=== PATIENT | male | born 1995 | race African-American/Black ===

== ENCOUNTER 2022-07-08 19:24 | Emergency (ER) | payer OTHER, SELFPAY ==
[2022-07-08 19:30] VITALS: BP 148/91; PULSE 80; RESP 16; TEMP 36.9; O2SAT 100
--- NOTE | 2022-07-08 19:33 | ED.MALEGU ---
HPI - Male Genitourinary General Stated complaint: sti checkup Time Seen by Provider: 07/08/22 19:38 Source: patient and RN notes reviewed Mode of arrival: ambulatory Limitations: no limitations History of Present Illness HPI Narrative: 26-year-old male presents concern for rash in the head of his penis. He reports that he noticed red bumps on his penis about 3 weeks ago with some slight burning and irritation when his clothes touch did. Reports he has been using hydrocortisone cream. Reports the bumps went away with he still has some skin irregularity in that area. He reports he is in a monogamous relationship currently and uses protection during intercourse. Denies dysuria, frequency, urgency, penile discharge. Reports the area does not itch. Related Data Home Medications Medication Instructions Recorded Confirmed No Home Medications 07/08/22 07/08/22 Allergies Allergy/AdvReac Type Severity Reaction Status Date / Time No Known Allergies Allergy Verified 07/08/22 19:32 Review of Systems Review of Systems: CONSTITUTIONAL: Denies malaise, chills, sweats, or fever. CARDIOVASCULAR: Denies chest pain, palpitations, or edema. RESPIRATORY: Denies cough or dyspnea. GASTROINTESTINAL: Denies abdominal pain, nausea, vomiting, diarrhea GENITOURINARY: Denies dysuria, frequency, urgency, suprapubic pressure. Denies flank pain or hematuria. SKIN: Reports skin irregularity on the head of his penis MUSCULOSKELETAL: Denies back pain or myalgia. All systems reviewed & are unremarkable except as noted in HPI and below PMFSH Comments At time of signature, agree with nursing past medical, surgical, social and family history. There is no relevant family history pertinent to the presenting complaint Exam Narrative: GENERAL: Well-appearing, well-nourished, and in no acute distress. HEAD: Normocephalic. EYES: PERRLA, conjunctivae clear. NECK: Supple. No lymphadenopathy CHEST: Clear to auscultation. No respiratory distress. HEART: Regular rate and rhythm. SKIN: Warm, dry. 1.5 cm area on the head of the penis of slight plaque, nontender, no erythema, no vesicles noted. No penile discharge noted, no scrotal or testicular erythema, edema, tenderness NEURO: Alert and oriented x3. PSYCH: Normal mood and affect Course Course Emergency Course: Patient is aware of diagnosis, understands and agrees to treatment plan. Anticipatory guidance given. Patient agrees to follow-up as directed and is aware of reasons to seek care at the emergency department. Portions of this record may have been created with voice recognition software Level of Care: Express Care Visit Vital Signs Vital signs: Reviewed. MDM - Male Genitourinary MDM Narrative Medical decision making narrative: Contact dermatitis, herpes, other STI, dry skin Critical Care Time Critical Care Time Critical Care Time: No Discharge Plan Discharge Clinical Impression: Rash of penis Patient Disposition: Home, Self-Care Condition: Stable Instructions: General Patient Instructions Additional Instructions: 1) Please follow-up with your primary care doctor if you have any new symptoms or concerns. 2) If you have any worsening of symptoms or any other urgent concerns please go to the ER. 3) Please use Vaseline or Aquaphor on it the problem area. 4) you will receive a phone call with results of your testing today. Continue to use protection during intercourse Prescriptions: No Action No Home Medications Follow-up/Referrals: UNKNOWN,DOCTOR [Primary Care Provider] - Time of Disposition: 19:57
== END 2022-07-08 20:01 | disposition home or self-care (01) ==
PROVIDERS: Emergency Provider Nurse Practitioner
DX: N48.89 Other specified disorders of penis (principal)
CPT/HCPCS: 87255; 99213; G0463

== ENCOUNTER 2023-09-11 21:51 | Emergency (ER) | payer BC, SELFPAY ==
[2023-09-11 21:55] VITALS: BP 139/81; PULSE 77; RESP 15; TEMP 36.8; O2SAT 99
[2023-09-11 22:25] LABS: Appearance Urine Clear (Clear); Bilirubin Urine Negative (Negative); Blood Urine Negative (Negative); Color Urine Yellow (Yellow); Glucose Urine UA Negative (Negative); Ketones Urine Trace mg/dL (Negative); Leukocyte Esterase Ur Negative LEU/UL (Negative); Nitrate Urine Negative (Negative); Protein Urine Negative (Negative); pH Urine 5.5 (5.0-9.0)
[2023-09-11 22:37] LABS: Add Urine Microscopic? NO
--- NOTE | 2023-09-11 22:47 | ED.MALEGU ---
HPI - Male Genitourinary General Chief complaint: Urogenital-Male Stated complaint: urgency to urinate Time Seen by Provider: 09/11/23 22:04 History of Present Illness HPI Narrative: 28-year-old male presents to the emergency department for intermittent burning sensations to the head of his penis for 1 year. Patient states the onset of symptoms he was evaluated at another hospital approximately 1 year ago onset he had a negative workup. He presents today because he wants to figure out what is going on. States the pain is around head of his penis and feels like it is deep inside, he describes it as burning sensation. He states he does not have burning when he urinates and denies penile discharge, testicular pain, abdominal pain, fever, nausea or vomiting. States he intermittently has dry skin to the head of the penis, otherwise denies lesions or rashes. States he never followed up with a urologist from his prior ED visit. He has been sexually active with 1 partner in the past 6 months and denies concerns for STDs, however is requesting testing and empiric treatment. Related Data Allergies Allergy/AdvReac Type Severity Reaction Status Date / Time No Known Allergies Allergy Verified 09/11/23 21:53 Review of Systems Review of Systems: CONSTITUTIONAL: Denies fever, chills, or sweats. EYES: Denies visual changes, redness, or discharge. ENT: Denies rhinorrhea, congestion, sore throat, or otalgia. CARDIOVASCULAR: Denies chest pain, palpitations, or edema. RESPIRATORY: Denies cough or dyspnea. GASTROINTESTINAL: Denies abdominal pain, nausea, vomiting, or diarrhea. GENITOURINARY: See HPI SKIN: Denies rash or itching. MUSCULOSKELETAL: Denies back pain, joint pain, or myalgia. NEUROLOGIC: Denies headache, numbness, or weakness. PSYCHIATRIC: Denies anxiety or depression. Exam Narrative: GENERAL: Well-appearing, well-nourished, and in no acute distress. HEAD: Normocephalic, atraumatic. ENT: Nares clear, no rhinorrhea or epistaxis. Mucous membranes moist. NECK: Supple. CHEST: Clear to auscultation. No respiratory distress. HEART: Regular rate and rhythm. No murmur heard. Normal peripheral pulses. ABDOMEN: Soft, nontender, nondistended, normal active bowel sounds. No rebound, guarding or rigidity. No CVA tenderness. : Flaccid penis. No tenderness or edema to his scrotum or testicles. No lesions or rashes to the penis. No tenderness to the head of the penis on palpation. No purulent drainage. Cremasteric reflex and intact. EXTREMITIES: Normal range of motion. No edema. SKIN: Warm, dry, no rash. NEURO: No focal deficits. Alert and oriented x3 Course Vital Signs Vital signs: Vital Signs Temperature 98.3 F 09/11/23 21:55 Pulse Rate 77 09/11/23 21:55 Respiratory Rate 15 09/11/23 21:55 Blood Pressure 139/81 09/11/23 21:55 Pulse Oximetry 99 09/11/23 21:55 Oxygen Delivery Room Air 09/11/23 21:55 Temperature 98.3 F 09/11/23 21:55 Pulse Rate 77 09/11/23 21:55 Respiratory Rate 15 09/11/23 21:55 Blood Pressure 139/81 09/11/23 21:55 Pulse Oximetry 99 09/11/23 21:55 Oxygen Delivery Room Air 09/11/23 21:55 MDM - Male Genitourinary MDM Narrative Medical decision making narrative: 28-year-old male presents to emergency department for intermittent burning sensation to the head of his penis for 1 year. See HPI for further history. Triage vitals stable. Exam is significant for the above and is unremarkable. Urinalysis unremarkable. Patient wishing to be apparently tested for STDs. Flagyl, doxy and IM Rocephin provided. Trichomonas, gonorrhea chlamydia pending. Will provide Urology and PCP follow-up. Advised further testing for HIV, syphilis and hepatitis as needed. Strict ED return precautions discussed. He is agreeable to plan verbalized understanding. Discharged in stable condition. Lab Data Labs: Lab Results 09/11/23 Range/Units 22:17 Urine Color Yellow (Yellow
[2023-09-11] MEDS: metroNIDAZOLE 500 MG TABLET PO (23:10)
[2023-09-11] MEDS: DOXYCYCLINE HYCLATE 100 MG TABLET PO (23:10)
[2023-09-11] MEDS: cefTRIAXone 1 GM VIAL 0.5 GM IM (23:11)
[2023-09-12 03:37] LABS: Trichomonas Vag PCR NOT DETECTED (NOT DETECTE)
[2023-09-12 04:00] LABS: Chlamydia trachomatis NOT DETECTED (NOT DETECTE); Neisseria gonorrhoeae PCR NOT DETECTED (NOT DETECTE)
== END 2023-09-11 23:17 | disposition home or self-care (01) ==
PROVIDERS: Emergency Provider Physician Assistant
DX: N48.89 Other specified disorders of penis (principal); Z11.3 Encounter for screening for infections with a predominantly sexual mode of transmission
CPT/HCPCS: 81003; 87491; 87591; 87661; 96372; 99283; A9270; J0696